=== PATIENT | female | born 1970 | race Caucasian/White ===

== ENCOUNTER 2017-03-30 09:04 | Emergency (ER) | payer OTHER ==
[2017-03-30 11:23] VITALS: BP 130/74
--- NOTE | 2017-03-30 11:30 | RAD ---
Indication: Right flank pain. CT of the abdomen and pelvis was performed without oral or IV contrast administration. Coronal and sagittal reconstructed images were obtained. Lung bases demonstrate no pleural fluid, nodules or masses. Heart is of normal size without evidence of pericardial effusion. The liver is normal in size. No focal lesions or intrahepatic duct dilatation is noted. The gallbladder demonstrates no calcified gallstones. No pericholecystic fluid or wall thickening is identified. The spleen is normal in size. Pancreas demonstrates no mass or pancreatic duct dilatation. The common duct is not dilated. 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 No evidence of ureteral calculi is noted. The left kidney also demonstrates no hydronephrosis. No retroperitoneal lymphadenopathy is noted. The colon is filled with stool. The uterus and ovaries are unremarkable. No free fluid is identified in the pelvis. No pelvic adenopathy is noted. Urinary bladder is otherwise unremarkable. The bony structures are otherwise unremarkable. IMPRESSION: Malrotated right kidney however no evidence of obstructive uropathy is noted. No other masses or fluid collections are identified.
--- NOTE | 2017-03-30 15:37 | UC ---
Miki Jensen Angela, scribed for Martell Hollins MD on 03/30/17 at 1203 . Back Pain HPI - HPI Summary HPI Summary: This pt is a 46 y/o female presenting to [facility] c/o sudden onset of back pain x4 days. Pt reports at first pain was in the middle of her back but for the past 2 days her pain radiates around her right mid and lower abdomen. Pt notes her pain is aggravated by laying down, bending over, and breathing. She describes her pain as sharp and shooting. Pt states difficulty sleeping secondary to pain. She denies urinary frequency, urinary urgency, difficulty urinating, change of urine color, dysuria, cough. She denies hx of kidney stones. Pt endorses a history of ovarian cyst and states her pain feels like this. She has seen a chiropractor for back pain with no relief. - History of Current Complaint Chief Complaint: UCBackPain Stated Complaint: LOWER BACK/ABD PAIN Time Seen by Provider: 03/30/17 10:25 Hx Obtained From: Patient Hx Last Menstrual Period: May-2016; chemo induced menopause Onset/Duration: Lasting Days Timing: Lasting Days Pain Intensity: 8 Pain Scale Used: 0-10 Numeric Back Pain: Radiates To - right mid and lower abdomen Aggravating: Movement, Bending, Nothing - laying down Alleviating: Nothing Associated Signs And Symptoms: Positive: Abdominal Pain. Negative: Swelling, Redness, Bruising, Fever, Weakness, Numbness, Tingling, Bladder Incontinence, Bowel Incontinence - Allergies/Home Medications Allergies/Adverse Reactions: Allergies Allergy/AdvReac Type Severity Reaction Status Date / Time seasonal Allergy Eyes Uncoded 03/30/17 10:56 Itchy/Swollen/Red/Watery Home Medications: Home Medications Tamoxifen TAB* [Nolvadex 10 MG*] 1 tab PO DAILY 03/30/17 [History Confirmed ] Trastuzumab* [Herceptin*] 03/30/17 [History Confirmed 03/30/17] Venlafaxine HCl [Effexor XR-] 1 cap PO DAILY 03/30/17 [History Confirmed ] PMH/Surg Hx/FS Hx/Imm Hx - Additional Past Medical History Additional PMH: Breast CA (currently undergoing treatment in [facility]). - Surgical History Surgical History: Yes Surgery Procedure, Year, and Place: 2004 reconstruction after childbirth. breast lumpectomy-February 2016 - Social History Alcohol Use: Occasionally Alcohol Amount: 1-2 week Substance Use Type: None Smoking Status (MU): Never Smoked Tobacco Have You Smoked in the Last Year: No - Immunization History Most Recent Influenza Vaccination: Review of Systems Constitutional: Negative Skin: Negative Eyes: Negative ENT: Negative Respiratory: Negative Cardiovascular: Negative Gastrointestinal: Abdominal Pain - Right sided lower abd pain. Genitourinary: Negative Motor: Negative Musculoskeletal: Other: - Back pain. Neurological: Negative Psychological: Negative All Other Systems Reviewed And Are Negative: Yes Physical Exam Triage Information Reviewed: Yes Vital Signs: Initial Vital Signs Temp 98.4 F 03/30/17 09:26 Pulse 74 03/30/17 09:26 Resp 16 03/30/17 09:26 BP 123/85 03/30/17 09:26 Pulse Ox 100 03/30/17 09:26 Vital Signs Reviewed: Yes - Additional Comments The patient is well-nourished in mild pain distress. The skin is warm and dry and skin color reflects adequate perfusion. HEENT: The head is normocephalic and atraumatic. The pupils are equal and reactive. The conjunctivae are clear and without drainage. Nares are patent and without drainage. Mouth reveals moist mucous membranes and the throat is without erythema and exudate. The external ears are intact. The ear canals are patent and without drainage. The tympanic membranes are intact. Neck is supple with full range of motion and non-tender. There are no carotid bruits. There is no neck vein distension. Respiratory: Chest is non-tender. Lungs are clear to auscultation and breath sounds are symmetrical and equal. Cardiovascular: Hear is regular rate and rhythm. There is no murmur or rub auscultated. Abdomen: The abdomen is soft. There is tenderness over the RLQ without rebound or guarding. There is tenderness over the right ovary. There is no tenderness over McBurney's point. Bowel sounds are present. Musculoskeletal: There is no back pain noted. Extremities are non-tender with full range of motion. There is good capillary refill. There is no peripheral edema or calf tenderness elicited. Neurological: Patient is alert and oriented to person, place and time. The patient has symmetrical motor strength in all four extremities. Psychiatric: The patient has an appropriate affect and does not exhibit any anxiety or depression. Diagnostics - Radiology CT ABD/PEL Xray Interpretation: Positive (See Comments) - Impression: Malrotated right kidney however no evidence of obstructive uropathy is noted. No other masses or fluid collections are identified. Radiology Interpretation Completed By: Radiologist Back Pain Course/Dx - Course Course Of Treatment: Pt denied pain medication. She will be discharged with flank pain. - Differential Dx/Diagnosis Differential Diagnosis/HQI/PQRI: Herniated Disc, Renal Colic, Strain, Sprain, Other - pyleonephritis Provider Diagnoses: Right flank pain Discharge - Discharge Plan Condition: Good Disposition: HOME Patient Education Materials: Flank Pain (ED) Referrals: Selena Wise PA [Primary Care Provider] - Additional Instructions: Please follow up with your primary care provider to assure your symptoms are improving. The documentation as recorded by the Miki pruitt Angela accurately reflects the service I personally performed and the decisions made by , Martell Hollins MD.
== END 2017-03-30 12:05 | disposition home or self-care (01) ==
LOC: UCEAST 09:04
DX: R10.9 Unspecified abdominal pain (principal); Q63.2 Ectopic kidney; C50.919 Malignant neoplasm of unspecified site of unspecified female breast; Z32.02 Encounter for pregnancy test, result negative
CPT/HCPCS: 74176; 81003; 84702; 99212; G0463

== ENCOUNTER 2018-06-07 07:42 | Emergency (ER) | payer OTHER ==
[2018-06-07 07:54] VITALS: BP 118/69
--- NOTE | 2018-06-07 08:00 | UC ---
Skin Complaint HPI - HPI Summary HPI Summary: rash left lower leg x 3 weeks the rash is pink in color, raised, not itchy, not tender concern about tick bite / lyme disease - History of Current Complaint Chief Complaint: UCSkin Time Seen by Provider: 06/07/18 07:52 Stated Complaint: SKIN COMPLAINT(LEGS) Hx Obtained From: Patient Hx Last Menstrual Period: 2015 ?: No Onset/Duration: Gradual Onset, Lasting Weeks - 3, Still Present Timing: Constant Onset Severity: Mild Current Severity: Mild Pain Intensity: 0 Location: Discrete - left lower leg Character: Raised Aggravating Factor(s): Nothing Alleviating Factor(s): Nothing Associated Signs & Symptoms: Positive: Rash. Negative: Nausea, Vomiting, Numbness, Weakness, Fever, Chills, Drainage, Tenderness - Allergy/Home Medications Allergies/Adverse Reactions: Allergies Allergy/AdvReac Type Severity Reaction Status Date / Time seasonal Allergy Eyes Uncoded 03/30/17 10:56 Itchy/Swollen/Red/Watery Review of Systems Constitutional: Negative Skin: Rash Eyes: Negative ENT: Negative Respiratory: Negative Is Patient Immunocompromised?: No All Other Systems Reviewed And Are Negative: Yes PMH/Surg Hx/FS Hx/Imm Hx Endocrine History: Thyroid Disease Cancer History: Breast Cancer - Surgical History Surgical History: Yes Surgery Procedure, Year, and Place: 2004 reconstruction after childbirth. breast lumpectomy-February 2016. LYMPH NODE - Family History Known Family History: Negative: Diabetes - Social History Alcohol Use: Occasionally Alcohol Amount: 1-2 week Substance Use Type: None Smoking Status (MU): Never Smoked Tobacco Have You Smoked in the Last Year: No - Immunization History Most Recent Influenza Vaccination: Physical Exam Triage Information Reviewed: Yes Appearance: Well-Appearing, No Pain Distress, Well-Nourished Vital Signs: Initial Vital Signs Temp 97.3 F 06/07/18 07:51 Pulse 84 06/07/18 07:51 Resp 15 06/07/18 07:51 BP 118/69 06/07/18 07:51 Pulse Ox 97 06/07/18 07:51 Vital Signs Reviewed: Yes Eyes: Positive: Conjunctiva Clear ENT: Positive: Normal ENT inspection, Hearing grossly normal, Pharynx normal Respiratory: Positive: Chest non-tender, Lungs clear, Normal breath sounds Cardiovascular: Positive: RRR, No Murmur, Pulses Normal Skin: Positive: rashes - maculopapularty rash , pink in coloer, raised borders , not tender, not itchy, no discharge Course/Dx - Diagnoses Provider Diagnoses: tinea corporis left leg Discharge - Sign-Out/Discharge Documenting (check all that apply): Patient Departure All imaging exams completed and their final reports reviewed: No Studies - Discharge Plan Condition: Stable Disposition: HOME Prescriptions: Ketoconazole 2 % CREAM (NF) [Nizoral 2% CREAM (NF)] 1 applic TOPICAL BID #60 gm Patient Education Materials: Tinea Corporis (ED) Referrals: Selena Wise PA [Primary Care Provider] - 2 Weeks - Billing Disposition and Condition Condition: STABLE Disposition: Home
== END 2018-06-07 08:03 | disposition home or self-care (01) ==
LOC: UCCORT 07:42
DX: B35.4 Tinea corporis (principal); Z91.048 Other nonmedicinal substance allergy status
CPT/HCPCS: 99212; G0463

== ENCOUNTER 2018-10-11 18:49 | Emergency (ER) | payer BC, OTHER | END 2018-10-11 20:18 | disposition left against medical advice (07) | LOC: UCCORT 18:49 | DX: Z53.21 Procedure and treatment not carried out due to patient leaving prior to being seen by health care provider (principal) ==

== ENCOUNTER 2019-04-02 13:16 | Emergency (ER) | payer BC ==
[2019-04-02 13:41] VITALS: BP 119/69
--- NOTE | 2019-04-02 13:50 | UC ---
Abdominal Pain Female HPI - HPI Summary HPI Summary: Dysuria and lower abd pressure/cramping 3 days. DYSURIA & URINARY URGENCY STARTED TODAY. DENIES VAGINAL ITCH, DISCHARGE OR PAIN. NO FEVER/CHILLS. DENIES TAKING AZO. TOOK 600MG IBUPROFEN AT 1300 W/ PAIN RELIEF. bm: normal PERIODS: menopause - History of Current Complaint Chief Complaint: UCGU Stated Complaint: URINARY Time Seen by Provider: 04/02/19 13:34 Hx Obtained From: Patient Hx Last Menstrual Period: MAY 2016; CHEMO-THERAPY INDUCED MENOPAUSE Timing: Constant Severity Initially: Mild Severity Currently: Mild Pain Intensity: 5 Pain Scale Used: 0-10 Numeric Aggravating Factor(s): Other: - urination Alleviating Factor(s): Nothing Associated Signs and Symptoms: Negative: Fever, Back Pain, Vaginal Discharge Allergies/Adverse Reactions: Allergies Allergy/AdvReac Type Severity Reaction Status Date / Time No Known Allergies Allergy Verified 04/02/19 13:36 Home Medications: Home Medications Levothyroxine TAB* [Synthroid TAB*] 112 mcg PO DAILY 04/02/19 [History Confirmed 04/02/19] PMH/Surg Hx/FS Hx/Imm Hx Previously Healthy: Yes Endocrine History: Thyroid Disease - Surgical History Surgical History: Yes Surgery Procedure, Year, and Place: 2004 reconstruction after childbirth. breast lumpectomy-February 2016. LYMPH NODE - Family History Known Family History: Negative: Diabetes - Social History Alcohol Use: Occasionally Alcohol Amount: 1-2 week Substance Use Type: None Smoking Status (MU): Never Smoked Tobacco Have You Smoked in the Last Year: No - Immunization History Most Recent Influenza Vaccination: 2012/2013 Review of Systems All Other Systems Reviewed And Are Negative: Yes Constitutional: Negative: Fever Respiratory: Positive: Negative Cardiovascular: Positive: Negative Gastrointestinal: Negative: Abdominal Pain, Vomiting, Diarrhea, Nausea Genitourinary: Positive: Dysuria, Urgency. Negative: Hematuria, Frequency, Vaginal/Penile Discharge Neurological: Negative: Negative Physical Exam Triage Information Reviewed: Yes Appearance: Well-Appearing Vital Signs: Initial Vital Signs Temp 97.6 F 04/02/19 13:37 Pulse 74 04/02/19 13:37 Resp 16 04/02/19 13:37 BP 119/69 04/02/19 13:37 Pulse Ox 100 04/02/19 13:37 Vital Signs Reviewed: Yes Respiratory Exam: Normal Cardiovascular Exam: Normal Abdomen Description: Positive: Nontender, Soft. Negative: CVA Tenderness (R), CVA Tenderness (L), Guarding Neurological: Positive: Alert Skin: Negative: Rashes Abd Pain Female Course/Dx - Course Course Of Treatment: Dusira, urgency x3 days w/ no fever, back pain. UA showed some leuks and blood. Will tx empirically. VITALS GOOD, exam unremarkable. urine cx sent. - Differential Dx/Diagnosis Differential Diagnosis: Pelvic Inflammatory Disease, Urinary Tract Infection Provider Diagnosis: UTI (urinary tract infection) Discharge - Sign-Out/Discharge Documenting (check all that apply): Patient Departure All imaging exams completed and their final reports reviewed: No Studies - Discharge Plan Condition: Good Disposition: HOME Prescriptions: Nitrofurantoin Monohyd/M-Cryst [Macrobid 100 mg Capsule] 100 mg PO BID 7 Days # 14 cap Patient Education Materials: Dysuria (ED) Referrals: Selena Wise PA [Primary Care Provider] - Additional Instructions: If worsening please follow up with pcp - Billing Disposition and Condition Condition: GOOD Disposition: Home
--- NOTE | 2019-04-05 06:50 | UC ---
- Progress Note Progress Note: please notify pt NO UTI stop antibiotic recheck with primary if still symptomatic Course/Dx - Diagnoses Provider Diagnoses: UTI (urinary tract infection) Discharge ED - Sign-Out/Discharge Documenting (check all that apply): Post-Discharge Follow Up All imaging exams completed and their final reports reviewed: No Studies - Discharge Plan Condition: Good Disposition: HOME Prescriptions: Nitrofurantoin Monohyd/M-Cryst [Macrobid 100 mg Capsule] 100 mg PO BID 7 Days # 14 cap Patient Education Materials: Dysuria (ED) Referrals: Selena Wise PA [Primary Care Provider] - Additional Instructions: If worsening please follow up with pcp - Billing Disposition and Condition Condition: GOOD Disposition: Home
== END 2019-04-02 14:03 | disposition home or self-care (01) ==
LOC: UCCORT 13:16
DX: N39.0 Urinary tract infection, site not specified (principal); E07.9 Disorder of thyroid, unspecified
CPT/HCPCS: 81003; 87086; 99212; G0463

== ENCOUNTER 2019-07-16 09:33 | Emergency (ER) | payer BC ==
[2019-07-16 10:21] VITALS: BP 125/74
--- NOTE | 2019-07-16 10:41 | UC ---
Lower Extremity/Ankle HPI - HPI Summary HPI Summary: 48-year-old female with the complaint of left foot pain after spending a lot of time over the holidays walking and standing. She denies any injury. - History of Current Complaint Chief Complaint: UCLowerExtremity Stated Complaint: LEFT FOOT PAIN Time Seen by Provider: 07/16/19 10:05 Hx Obtained From: Patient Hx Last Menstrual Period: MAY 2016; CHEMO-THERAPY INDUCED MENOPAUSE ?: No Onset/Duration: Gradual Onset Pain Intensity: 4 Aggravating Factor(s): Standing, Ambulation Alleviating Factor(s): Nothing Able to Bear Weight: Yes - Allergies/Home Medications Allergies/Adverse Reactions: Allergies Allergy/AdvReac Type Severity Reaction Status Date / Time No Known Allergies Allergy Verified 07/16/19 10:15 Home Medications: Home Medications Anastrozole [Arimidex] 1 mg PO DAILY 07/16/19 [History Confirmed 07/16/19] Calcium Carbonate/Vitamin D3 [Calcium 500 + Vit D Caplet] 2 each PO DAILY [History Confirmed 07/16/19] Gabapentin CAP(*) [Neurontin 100 mg CAP(*)] 100 mg PO DAILY PRN 07/16/19 [ History Confirmed 07/16/19] PMH/Surg Hx/FS Hx/Imm Hx Previously Healthy: Yes Endocrine History: Thyroid Disease Cancer History: Breast Cancer - Surgical History Surgical History: Yes Surgery Procedure, Year, and Place: 2004 reconstruction after childbirth. breast lumpectomy-February 2016. LYMPH NODE - Family History Known Family History: Negative: Diabetes - Social History Alcohol Use: Occasionally Alcohol Amount: 1-2 week Substance Use Type: None Smoking Status (MU): Never Smoked Tobacco Have You Smoked in the Last Year: No - Immunization History Most Recent Influenza Vaccination: 2012/2013 Review of Systems All Other Systems Reviewed And Are Negative: Yes Motor: Positive: Negative Neurovascular: Positive: Negative Musculoskeletal: Positive: Other: - Pain on plantar surface of left foot. No known injury. Is Patient Immunocompromised?: No Physical Exam Triage Information Reviewed: Yes Appearance: Well-Appearing, No Pain Distress, Well-Nourished Vital Signs: Initial Vital Signs Temp 99 F 07/16/19 10:17 Pulse 72 07/16/19 10:17 Resp 16 07/16/19 10:17 BP 125/74 07/16/19 10:17 Pulse Ox 100 07/16/19 10:17 Vital Signs Reviewed: Yes Musculoskeletal: Positive: Strength Intact, ROM Intact, Other: - Pain on palpation of the medial plantar surface of her left foot. Base of the fifth and first metatarsals are nontender. Achilles is intact. Good peripheral pulses neuro sensation and capillary refill. Full range of motion. No erythema , swelling, deformity or bruising is noted. Neurological Exam: Normal Psychological Exam: Normal Skin Exam: Normal Lower Extremity Course/Dx - Course Course Of Treatment: Left foot x-ray: Negative At this point time I believe this is a plantar fasciitis. The patient was given exercises for that and to follow-up with the voice professor if no improvement in 2 or 3 days. - Differential Dx/Diagnosis Provider Diagnosis: Plantar fasciitis, left Discharge ED - Sign-Out/Discharge Documenting (check all that apply): Patient Departure All imaging exams completed and their final reports reviewed: Yes - Discharge Plan Condition: Fair Disposition: HOME Prescriptions: Ibuprofen TAB* [Motrin TAB* 600 MG] 600 mg PO Q8H PRN #21 tab PRN Reason: pain Patient Education Materials: Plantar Fasciitis Exercises (GEN), Plantar Fasciitis (ED) Referrals: Srini Lopez DPM [Doctor of Podiatric Medicine] - Selena Wise PA [Primary Care Provider] - Samantha Talamantes DPM [Doctor of Podiatric Medicine] - Additional Instructions: Elevate as much as possible, limit walking, apply heat to the sore area, take Motrin every 8 hours over the next 2 or 3 days with food. Definite follow-up with the voice professor if no improvement in 2 or 3 days. - Billing Disposition and Condition Condition: FAIR Disposition: Home
--- OUTSIDE RECORDS SUMMARY | 2019-07-18 15:59 | XMS REPORT | Summary of Care ---
:1970 Author Organization [facility] Address [address] [place] [address] Care Team Providers Name Role Phone Selena Wise Primary Care Provider Reason for Visit Reason Comments Follow-up Encounter Details Date Type Department Care Team Description 06/28/2019 Office Visit Marily Sharp MD Malignant neoplasm of Oncology [address] [facility] upper-outer quadrant [address] [facility] [address] of left breast in [address] [place], [place] female, estrogen [address] [id number] receptor positive [place], [place] [phone] (Primary Dx) [id number] Allergies Active Allergy Reactions Severity Noted Date Comments Environmental Other (See Comments) Medium 12/07/2018 Nasal issues documented as of this encounter (statuses as of 07/12/2019) Medications Medication Sig Dispensed Refills Start Date End Date Status levothyroxine Take 112 mcg by 0 03/17/2017 Active (SYNTHROID, LEVOTHROID) mouth daily 112 MCG tablet B Complex Vitamins Take 1 tablet 0 Active (VITAMIN B COMPLEX) by mouth daily TABS Cholecalciferol Take 1,000 0 Active (VITAMIN D) 1000 units Units by mouth tablet mometasone (NASONEX) 50 2 sprays by 0 Active MCG/ACT nasal spray Nasal route daily hydrOXYzine (ATARAX) 10 take 1 tablet 90 tablet 0 01/02/2019 Active MG tablet three times a day if needed for itching anastrozole (ARIMIDEX) Take 1 tablet 30 tablet 11 06/08/2019 06/06/2020 Active 1 MG tablet by mouth daily documented as of this encounter (statuses as of 07/12/2019) Active Problems Problem Noted Date Long-term current use of tamoxifen 06/02/2018 Anxiety 11/29/2017 Situational depression 06/24/2016 Intermittent palpitations 06/17/2016 Hypothyroidism 06/17/2016 Thyroid nodule 06/17/2016 Malignant neoplasm of upper-outer quadrant of left female breast 05/20/2016 Malignant neoplasm of upper-outer quadrant of left female breast 04/08/2016 Cancer Staging: Clinical: Unsigned Pathologic stage from 09/03/2016: Stage IIA (T1c, N1a, cM0) - Signed by Marily Jarrett MD on 01/04/2017 Encounter for other screening for genetic and chromosomal anomalies 02/21/2016 documented as of this encounter (statuses as of 07/12/2019) Resolved Problems Problem Noted Date Resolved Date Rash of back 10/07/2016 11/11/2016 Nausea 04/15/2016 12/04/2016 Chemotherapy induced nausea and vomiting 04/14/2016 11/11/2016 documented as of this encounter (statuses as of 07/12/2019) Immunizations Name Administration Dates Next Due Influenza Quad IM Pres Free (0.5 mL dose) 06/24/2016 documented as of this encounter Social History Tobacco Use Types Packs/Day Years Used Date Never Smoker Smokeless Tobacco: Never Used Alcohol Use Drinks/Week oz/Week Comments No rarely Sex Assigned at Date Recorded Not on file Job Start Date Occupation Industry Not on file Not on file Not on file Travel History Travel Start Travel End No recent travel history available. documented as of this encounter Last Filed Vital Signs Vital Sign Reading Time Taken Comments Blood Pressure - - Pulse - - Temperature - - Respiratory Rate - - Oxygen Saturation - - Inhaled Oxygen Concentration - - Weight 100.4 kg (221 lb 6.4 oz) 06/28/2019 9:20 AM EST Height - - Body Mass Index 30.88 07/14/2018 9:29 AM EST documented in this encounter Progress Notes Maury Steel MD - 06/28/2019 9:00 AM EST Radiation Oncology Outpatient Follow-up Visit Report Subjective: Diagnosis and Stage: Left breast, IDC, grade 3, ER+/NJ+, Her2+, pT1c N1a M0, stage IIa. Treatment: Breast conserving therapy 1. Lumpectomy with Dr. Li, performed on 02/19/2016 2. Radiation Therapy: 09/24/16 to 11/17/2016 Regional Nodes + IMN to a dose of 4500 cGy in 180 cGy daily fractions using 6/ 18 MV photons (25 fractions). Left breast to a dose of 5040 cGy in 180 cGy daily fractions using 6 MV photons (28 fractions). Left breast boost to a dose of 1600 cGy for total dose of 6640 cGy in 200 cGy daily fractions using 6/9 MeV electrons (8 additional fractions for 36 total). 3. Chemotherapy: dose dense AC followed by taxol and herceptin, 03/2016 - 2016 4. Tamoxifen, started in October 2016 ->anastrozole May ECOG Performance Status: (0) Fully active, able to carry on all predisease performance without restriction. Kelly Pinon is a 46 y.o. female with a diagnosis of Left breast, IDC, grade 3 , ER+/NJ+, Her2+, pT1c N1a M0, stage IIa. The patient has completed a course of radiotherapy. Oncology History: She self palpated a lump in 12/2015. She had previously had a normal mammogram in 06/2015. She was referred for diagnostic mammogram and US. Mammogram showed dense breast tissue with no significant changes. US identified 1.3 x 0.9 x 1.2 cm mass in LUOQ. US guided biopsy on 01/22/16 returned grade 3 IDC. Breast MRI confirmed the enhancing mass with no other abnormalities. Lumpectomy with SNB was performed by Dr. Li on 02/19/16 with final pathology of grade 3 IDC measuring 16 x 14 x 7 mm, triple positive, 1/ lymph nodes positive measuring 3 mm. She had a PET/CT that was negative for metastatic disease.She saw Dr. Morales who recommended ACTH, which she started on 03/19/16. She had severe dehydration following her first chemotherapy cycle, and she decided to move her care to [place] with Dr. Hobson. She has completed 4 cycles of dose dense AC, and THP. She went to complete a course of adjuvant radiation on 11/17/2016. Interval History: In general, the patient has been doing well over the last 12 months. She notes an occasional shooting pain in her back on the left side. She does not take any pain medications and pain is not getting worse. She has no breast specific concerns or complaints at today's visit. In particular, she denies any breast tenderness, erythema, swelling, new lumps/bumps, or breast pain. She performs regular self breast examinations and has not noted any new or concerning abnormalities. She was recently switched to anastrozole which she tolerates fairly well. She denies unusual headaches or bone pain. Energy, appetite, and weight are stable. She denies other complaints or concerns and a full review of systems was otherwise noncontributory. Medications: Current Outpatient Medications Medication Sig Dispense Refill anastrozole (ARIMIDEX) 1 MG tablet Take 1 tablet by mouth daily 30 tablet 11 B Complex Vitamins (VITAMIN B COMPLEX) TABS Take 1 tablet by mouth daily Cholecalciferol (VITAMIN D) 1000 units tablet Take 1,000 Units by mouth hydrOXYzine (ATARAX) 10 MG tablet take 1 tablet three times a day if needed for itching 90 tablet 0 levothyroxine (SYNTHROID, LEVOTHROID) 112 MCG tablet Take 112 mcg by mouth daily 0 mometasone (NASONEX) 50 MCG/ACT nasal spray 2 sprays by Nasal route daily No current facility-administered medications for this visit. Allergies: Environmental Objective: There were no vitals filed for this visit. Wt Readings from Last 3 Encounters: 06/28/19 100.4 kg (221 lb 6.4 oz) 06/06/19 96.5 kg (212 lb 12.8 oz) 12/07/18 95.6 kg (210 lb 12.8 oz) Physical Examination General: No acute distress HEENT: Normocephalic and atraumatic Lymphatics: no palpable supraclavicular lymphadenopathy Cardiovascular: regular rate and rhythm Pulmonary: non-labored breathing, clear to auscultation bilaterally, no wheezes , rales or rhonchi Musculoskeletal: No point tenderness over spine or sacrum Neurological: alert and oriented Skin: skin warm and dry, no gross lesions upon examination Psychiatric: affect and mood congruent. Judgement and insight appear intact Breast: Right breast without abnormalities on inspection or palpation. Left breast with well healed scar and no evidence of new masses or concerning abnormalities on inspection or palpation. Treated area with telangiectasias from prior radiation. mild fibrosis in area of lumpectomy cavity. No axillarylymphadenopathy or nipple retraction/bleeding bilaterally. Diagnostic Test Results and Imaging: Bilateral Mammo/US 03/20/19 Assessment & Plan: Kelly Pinon is a 48 y.o. female diagnosed with a diagnosis of Left breast, IDC, grade 3, ER+/NJ+,Her2+, pT1c N1a M0, IIa treated with lumpectomy followed by adjuvant chemotherapy and adjuvant radiation therapy completed on 11/17/2016. Clinically, she is doing well with minimal symptoms related to prior treatment and no symptoms concerning for disease recurrence. Back pain is not typical of metastatic disease and seems to be musculoskeletal in nature. If this continues and/or worsens, patient knows to let us know and imaging may be indicated at that time. Patient had a CT which showed a pleural density in the anterior aspect of theleft lungs and patient was wondering if this may have been related to prior radiation. We have requested these images. She has recently switched from tamoxifen to anastrozole which she tolerates well.She had an interval mammogram in March that showed BI-RADS 2. We encouraged her to continue follow up with Dr. Li who is ordering her mammograms. We did encourage her to perform regular self-breast examinations, be physically active, and to maintain a healthy diet. We would like her to return for follow up in 6 months. We would be happy to see her sooner if there are any additional questions or concerns. Maury Steel MD Radiation Oncology Resident, PGY-2 I was present for the clinical encounter as documented above.The above note reflects the entirety ofthe evaluation by myself and resident. I reviewed the patient's history, performed a physical exam and reviewed relevant imaging and lab studies. I formulated a treatment plan and discussed with resident and the patient. documented in this encounter Plan of Treatment Date Type Specialty Care Team Description 12/27/2019 Office Visit Radiation Oncology Marily Jarrett MD [address] [address] 05/28/2020 Appointment Radiology 06/05/2020 Office Visit Hematology and Oncology Felix Hobson MD [address] [place] [address] Health Maintenance Due Date Last Done Comments MMR Vaccines (1 of 1 - Standard 1972 series) Pneumococcal Vaccine: Pediatrics 1977 (0 to 5 Years) and At-Risk Patients (6 to 64 Years) (1 of 3 - PCV13) DTaP,Tdap,and Td Vaccines (1 - 1978 Tdap) HIV Screening 1984 Varicella Vaccines (1 of 2 - 13+ 1984 2-dose series) Cervical Cancer Screening 5 years 1992 Influenza Vaccine 05/16/2019 06/24/2016 Pneumococcal Vaccine: 65+ Years (1 2036 of 2 - PCV13) HIB Vaccines Aged Out No longer eligible based on patient's age to complete this topic Hepatitis A Vaccines Aged Out No longer eligible based on patient's age to complete this topic Hepatitis B Vaccines Aged Out No longer eligible based on patient's age to complete this topic IPV Vaccines Aged Out No longer eligible based on patient's age to complete this topic documented as of this encounter Results Not on filedocumented in this encounter Visit Diagnoses Diagnosis Malignant neoplasm of upper-outer quadrant of left breast in female, estrogen receptor positive - Primary documented in this encounter
== END 2019-07-16 10:47 | disposition home or self-care (01) ==
LOC: UCCORT 09:33
DX: M72.2 Plantar fascial fibromatosis (principal); Z85.3 Personal history of malignant neoplasm of breast
CPT/HCPCS: 99212; G0463